=== PATIENT | male | born 1965 | race Caucasian/White ===

== ENCOUNTER 2024-02-10 09:51 | Day surgery (SDC) | payer BC ==
[2024-02-02 14:10] LABS: BASOPHILS % (AUTO) 0.7 % (0-1); EOSINOPHILS # (AUTO) 0.4 X10'3 (0-0.9); LYMPHOCYTES % (AUTO) 27.8 % (21-51); MEAN CORPUSCULAR HGB CONC 34.2 g/dL (33.0-36.5); MEAN CORPUSCULAR VOLUME 93.7 FL (78-98); MEAN PLATELET VOLUME 9.4 FL (7.4-10.4); MONOCYTES % (AUTO) 14.1 % (2-12); NEUTROPHILS # (AUTO) 3.8 X10'3 (1.8-7.7); NEUTROPHILS % (AUTO) 52.4 % (42-75); PRE OP HEMATOCRIT 46.7 % (42.0-52.0); PRE OP PLATELET COUNT 213 X10'3 (140-440); PRE OP WHITE BLOOD COUNT 7.3 10'3 (4.8-10.8); RED BLOOD COUNT 4.99 X10'6 (4.70-6.10); RED CELL DISTRIBUTION WIDTH 13.5 % (11.5-14.5)
[2024-02-02 14:11] LABS: BILIRUBIN,URINE NEGATIVE (Neg); CLARITY,URINE CLEAR (Clear); COLOR,URINE YELLOW (Yellow); GLUCOSE, URINE NEGATIVE (Neg); KETONES,URINE NEGATIVE (Neg); LEUKOCYTE ESTERASE ,URINE NEGATIVE (Neg); NITRITES, URINE NEGATIVE (Neg); OCCULT BLOOD,URINE NEGATIVE (Neg); PH,URINE 5.5 (4.8-8.0); PROTEIN,URINE NEGATIVE (Neg); UROBILINOGEN,URINE 0.2 E.U/dL (0.2-1.0)
[2024-02-02 14:18] LABS: UA COLLECTION TYPE CLN CATCH MIDSTREAM
[2024-02-02 14:39] LABS: PRE OP INR 0.9 INR; PRE OP PROTIME 10.2 SECONDS (9.0-12.0)
[2024-02-02 14:40] LABS: ALBUMIN 3.7 G/DL (3.4-5.0); ALBUMIN/GLOBULIN RATIO 1.1 (1.1-1.5); ALKALINE PHOSPHATASE 74 IU/L (46-116); BLOOD UREA NITROGEN 19 MG/DL (7-18); BUN/CREATININE RATIO 15.6 (10.0-20.0); CALCIUM 8.3 MG/DL (8.5-10.1); CHLORIDE 102 MMOL/L (99-107); CREATININE 1.22 MG/DL (0.60-1.10); PRE OP ALT 48 U/L (30-65); PRE OP ANION GAP 5 (8-16); PRE OP BILIRUB, TOTAL 0.3 MG/DL (0.0-1.0); PRE OP SODIUM 138 MMOL/L (135-145); TOTAL CARBON DIOXIDE 30.6 MMOL/L (24-32); TOTAL PROTEIN 7.1 G/DL (6.4-8.2); eGFR 61 ML/MIN
[2024-02-02 14:41] LABS: PRE OP GLUCOSE 95 MG/DL (70-104); PRE OP POTASSIUM 4.1 MMOL/L (3.4-5.1)
[2024-02-02 14:55] LABS: PRE OP AST 25 U/L (10-37)
[~2024-02-10] VITALS: Ht 170.2 cm; Wt 93.0 kg
[2024-02-10] VITALS (24 sets, daily range): BP systolic 117–161; BP diastolic 60–100; PULSE 59–96; RESP 13–16; TEMP 97.3–98.4; O2SAT 92–99
[~2024-02-10 09:51] MED LIST: AMPH20CA3 PO; ESZO3TAB66 PO; LISI20TA28 PO; LORA10CA PO; OMEP40CA21 PO; VENL150C5 PO
[2024-02-10] MEDS ORDERED: gelatin sponge, absorbable (Gelfoam 100) sponge TP ONE (10:12)
[2024-02-10] MEDS ORDERED: methylene blue (5mg/ml) 50mg/10ml ampul IV ONE ×2 (10:12→11:16)
[2024-02-10] MEDS ORDERED: vancomycin 1,000mg inj ONE (10:12)
[2024-02-10] MEDS ORDERED: Thrombin (Bovine) 5,000 unit vial TP ONE (10:13)
[2024-02-10] MEDS: tranexamic acid inj. 1,000 MG in normal saline IV soln 100ML IV ONE (10:22)
[2024-02-10] MEDS: cefazolin 2gm/D5W 100mL 100 ML IV ONE (10:22)
[2024-02-10] MEDS: famotidine 20mg tablet PO ONE (10:23)
[2024-02-10] MEDS: ringers solution, lacted 1,000 ML IV SCH (10:23)
[2024-02-10] MEDS ORDERED: midazolam 1 mg/ML 2ml injection ONE (11:29)
[2024-02-10] MEDS ORDERED: propofol inj 20 ML IV ONE (11:29)
[2024-02-10] MEDS ORDERED: fentaNYL/PF 50MCG/1 ML 2ML syringe ONE (11:29)
[2024-02-10] MEDS ORDERED: ROPIVAcaine 0.5% (5mg/ml) 30ml vial ONE (11:31)
[2024-02-10] MEDS ORDERED: sevoflurane 250ml liquid IH ONE (12:48)
[2024-02-10] MEDS ORDERED: bisacodyl 10mg suppository rectal RC PRN (12:50)
[2024-02-10] MEDS ORDERED: acetaminophen 325mg tablet PO PRN (12:50)
[2024-02-10] MEDS ORDERED: diphenhydrAMINE 25mg capsule PO PRN (12:50)
[2024-02-10] MEDS ORDERED: ondansetron/PF 4mg/2ml inj IV PRN ×2 (12:50→14:05)
[2024-02-10] MEDS ORDERED: naloxone 0.4 mg/ml inj IV PRN (12:50)
[2024-02-10] MEDS ORDERED: HYDROcodone/acetaminophen 5mg/325mg tablet PO PRN (12:50)
[2024-02-10] MEDS: vancomycin 1,000mg inj ONE (13:42)
[2024-02-10] MEDS ORDERED: morphine 2 MG/ML inj. syringe IV PRN (14:05)
[2024-02-10] MEDS ORDERED: ringers solution, lacted 1,000 ML IV SCH (14:05)
[2024-02-10] MEDS ORDERED: proCHLORperazine 10 MG/2 ml inj IV PRN (14:05)
[2024-02-10] MEDS ORDERED: meperidine/PF 25mg/ml syringe IV PRN ×3 (14:05)
[2024-02-10] MEDS ORDERED: morphine 4 MG/ML inj SYRINge IV PRN (14:05)
[2024-02-10] MEDS ORDERED: glycopyrrolate 0.2mg/ml inj ONE (15:14)
[2024-02-10] MEDS ORDERED: neostigmine methylsulfate 1 MG/ML 10ml vial ONE (15:14)
[2024-02-10] MEDS ORDERED: dexamethasone sod phosphate 4mg/ml inj. ONE (15:15)
[2024-02-10] MEDS ORDERED: ondansetron/PF 4mg/2ml inj ONE (15:15)
[2024-02-10] MEDS ORDERED: LORA10TA7 PO (19:39)
[2024-02-10] MEDS: potassium cl 20mEq in 1/2 NS 1,000 ML IV SCH (21:38)
[2024-02-10] MEDS: cefazolin 2gm/D5W 100mL 100 ML IV SCH (21:44)
[2024-02-10] MEDS: zolpidem 5mg tablet PO PRN (21:45)
[2024-02-11 02:00] VITALS: BP 138/85; PULSE 76; RESP 17; TEMP 98.1
[2024-02-11] MEDS: HYDROcodone/acetaminophen 5mg/325mg tablet PO PRN (05:17)
[2024-02-11 06:26] VITALS: BP 121/61; PULSE 55; RESP 14; TEMP 97.7; O2SAT 96
[2024-02-11 07:19] LABS: BASOPHILS % (AUTO) 0.1 % (0-1); EOSINOPHILS % (AUTO) 0.1 % (0-6); HEMATOCRIT 46.6 % (42.0-52.0); HEMOGLOBIN 15.4 g/dl (14.0-17.9); LYMPHOCYTES # (AUTO) 1.1 X10'3 (1.1-4.8); LYMPHOCYTES % (AUTO) 7.9 % (21-51); MEAN CORPUSCULAR HEMOGLOBIN 31.3 PG (27.0-31.0); MEAN CORPUSCULAR HGB CONC 33.1 g/dL (33.0-36.5); MEAN CORPUSCULAR VOLUME 94.7 FL (78-98); MEAN PLATELET VOLUME 9.3 FL (7.4-10.4); MONOCYTES # (AUTO) 1.8 X10'3 (0-0.9); MONOCYTES % (AUTO) 12.9 % (2-12); PLATELET COUNT 194 X10'3 (140-440); RED BLOOD COUNT 4.92 X10'6 (4.70-6.10); RED CELL DISTRIBUTION WIDTH 13.3 % (11.5-14.5); WHITE BLOOD COUNT 13.9 X10'3 (4.5-11.0)
[2024-02-11 07:27] LABS: ANION GAP 6 (8-16); CHLORIDE 98 MMOL/L (99-107); POTASSIUM 4.5 MMOL/L (3.5-5.1); SODIUM 129 MMOL/L (135-145); TOTAL CARBON DIOXIDE 25.3 MMOL/L (24-32)
[2024-02-11] MEDS ORDERED: dextroamphetamine/amphetamine ER 20 MG CAP.SR.24H PO SCH ×2 (08:00→11:39)
[2024-02-11] MEDS: loratadine 10mg tablet PO SCH (08:44)
[2024-02-11] MEDS: pantoprazole 40mg Tablet.DR PO SCH (08:44)
[2024-02-11 08:45] VITALS: BP_SYST 121; PULSE 55
[2024-02-11] MEDS: lisinopril 20mg tablet PO SCH (08:45)
[2024-02-11] MEDS: venlafaxine XR 75mg capsule (Q24H) PO SCH (08:45)
[2024-02-11] MEDS: aspirin 325mg tablet PO SCH (08:45)
== END 2024-02-11 12:53 | disposition home or self-care (01) ==
LOC: PAS 09:51 → ORTHO 4S 09:51 → PAS 02-11 12:53
PROVIDERS: ATTEND Specialist
DX: M19.011 Primary osteoarthritis, right shoulder (principal); G89.18 Other acute postprocedural pain; I10 Essential (primary) hypertension; E66.9 Obesity, unspecified; I20.9 Angina pectoris, unspecified; G47.33 Obstructive sleep apnea (adult) (pediatric); K21.9 Gastro-esophageal reflux disease without esophagitis; F32.A Depression, unspecified; F98.8 Other specified behavioral and emotional disorders with onset usually occurring in childhood and adolescence; Z79.1 Long term (current) use of non-steroidal anti-inflammatories (NSAID); Z79.899 Other long term (current) drug therapy; Z98.890 Other specified postprocedural states; Z68.32 Body mass index [BMI] 32.0-32.9, adult; Z88.5 Allergy status to narcotic agent
CPT/HCPCS: 23430; 23472; 36415; 64415; 71045; 73030; 80051; 80053; 81003; 82948; 85025; 85610; 85730; 86885; 86900; 86901; 87081; 97110; 97161; 97535; C1776; J0690; J1100; J2250; J2405; J2704; J2710; J2795; J3010; J3370; J3480; J3490; J7030; J7120; Z7506; Z7508; Z7512; 76000; A4565; A4615; A4618; A6449; A6455; A7000; G0378; Q9968